=== PATIENT | male | born 1940 | race Caucasian/White ===

== ENCOUNTER 2017-03-20 10:29 | Observation (INO) | payer OTHER ==
[2017-03-13 10:46] VITALS: BMI 23.0
--- NOTE | 2017-03-13 11:29 | PAT Medication Instructions ---
Service Date Mar 13, 2017. Current Home Medication List Amlodipine (Norvasc), 10 MG PO QD@0500 Aspirin (Aspirin Ec), 81 MG PO QD@0500 Atorvastatin (Lipitor), 1 TAB PO QD@1800 Cetirizine/Pseudoephedrine (Zyrtec-D Er 5MG/120MG), 1 TAB PO Q12H PRN for allergies Hydrocodone/Acetaminophen 5MG/325MG ([place] 5MG/325MG), 1 TABLET PO Q6 PRN for Pain Omeprazole (Prilosec), 20 MG PO DAILY PRN for Heartburn Medication Instructions For Your Scheduled Surgery - Hold the following medications the morning of surgery: Cetirizine/Pseudoephedrine (Zyrtec-D Er 5MG/120MG), 1 TAB PO Q12H PRN for allergies - Take the following medications the morning of surgery with a sip of water OTHERWISE NOTHING TO EAT OR DRINK AFTER MIDNIGT: Amlodipine (Norvasc), 10 MG PO QD@0500 Omeprazole (Prilosec), 20 MG PO DAILY PRN for Heartburn Hydrocodone/Acetaminophen 5MG/325MG ([place] 5MG/325MG), 1 TABLET PO Q6 PRN for Pain (may take if needed up to 4 hours prior to surgery) Aspirin (Aspirin Ec), 81 MG PO QD@0500 (okay to continue per surgeon) - Take the following medications as scheduled the night before surgery: Hydrocodone/Acetaminophen 5MG/325MG ([place] 5MG/325MG), 1 TABLET PO Q6 PRN for Pain Atorvastatin (Lipitor), 1 TAB PO QD@1800 If you have any questions please call us at [phone] or [phone] or [phone]
[2017-03-13 11:55] LABS: URINE APPEARANCE CLEAR (CLEAR); URINE BILIRUBIN NEG (NEG); URINE COLOR YELLOW; URINE NITRITE NEG (NEG); URINE SPECIFIC GRAVITY 1.013 (1.000-1.030); UROBILINOGEN NEG (NEG)
[2017-03-13 11:56] LABS: BASO % 0.5 %; BASO ABS # 0.04 K/uL (0-0.2); COMPLETE YES; HEMATOCRIT 41.3 % (42-52); IG% 0.2 %; LYMPH % 22.4 %; LYMPH ABS # 1.97 K/uL (1.2-3.4); MEAN CELL VOLUME 96.9 fL (80-100); MEAN CORPUSCULAR HEMOGLOBIN 33.8 pg (25-34); MEAN CORPUSCULAR HGB CONC 34.9 g/dl (32-36); MEAN PLATELET VOLUME 10.8 fL (7.4-10.4); MONO % 7.6 %; NEUT % 68.3 %; PLATELET COUNT 178 K/uL (130-400); RED BLOOD COUNT 4.26 M/uL (4.7-6.1); WHITE BLOOD COUNT 8.78 K/uL (4.8-10.8)
[2017-03-13 12:00] LABS: MANUAL MICROSCOPIC REQUIRED? NO; REVIEW REQ? NO
[2017-03-13 12:03] LABS: PARTIAL THROMBOPLASTIN RATIO 1.1; PROTHROMBIN TIME (PATIENT) 10.7 SECONDS (9.0-12.0)
--- NOTE | 2017-03-13 12:17 | DIAGNOSTIC IMAGING REPORT ---
CHEST 2 VIEWS ROUTINE HISTORY: 76 years-old Male PAT preoperative exam. No acute chest complaints. COMPARISON: None available TECHNIQUE: PA and lateral views of the chest FINDINGS: Cardiac silhouette is within normal limits. Mild biapical pleural-parenchymal scarring with hyperinflation, increased lucency suggesting emphysema and multifocal multilobar distribution of subpleural reticular opacities suggesting areas of fibrosis. There is no pneumothorax, pleural effusion or definite lobar airspace consolidation. Multilevel endplate spurring of the spine. IMPRESSION: 1. Hyperinflation with emphysema and subpleural reticular opacities suggesting areas of fibrosis. 2. No acute cardiopulmonary process is identified. The above report was generated using voice recognition software. It may contain grammatical, syntax or spelling errors. Electronically signed by: Benito Bautista M.D. 03/13/2017 12:15 PM Dictated Date/Time: 03/13/2017 12:14 PM
[2017-03-13 13:43] LABS: BUN/CREATININE RATIO 20.9 (10-20); CALCIUM 9.1 mg/dl (8.5-10.1); CREATININE 0.81 mg/dl (0.60-1.40); POTASSIUM 4.3 mmol/L (3.5-5.1)
--- NOTE | 2017-03-19 17:22 | HISTORY & PHYSICAL EXAMINATION ---
DATE OF ADMISSION: 03/20/2017 CHIEF COMPLAINT: He presents with low back pain with right lower extremity difficulty. HISTORY OF PRESENT ILLNESS: Yair is a 76-year-old male with low back pain and some right lower extremity difficulty. He states that he has had a history of fairly significant radiculopathy with weakness in the right lower extremity. It has been going on for quite a while now. Seems to be along the L4 nerve root distribution. He cannot extend his legs fully. He uses a walker for support; however, does ambulate independently. PAST MEDICAL HISTORY: Includes: 1. COPD. 2. History of DVT. 3. Hypertension. PAST SURGICAL HISTORY: Includes a hernia repair. ALLERGIES: No known drug allergies. CURRENT MEDICATIONS: Not given. FAMILY AND SOCIAL HISTORY: He lives alone, no alcohol use, non-tobacco use, little activity as far as his ____ He is retired. REVIEW OF SYSTEMS: MUSCULOSKELETAL: Positive for joint pain, stiffness, weakness to the lower extremity. CONSTITUTIONAL: Positive for weight loss. RESPIRATORY: Positive for shortness of breath and wheezing. GASTROINTESTINAL: Positive for nausea and vomiting. GENITOURINARY: Positive for no emergency or frequency. PSYCHIATRIC: He has no confusion or depression. OBJECTIVE: CONSTITUTIONAL: He is 5 foot 10 inches; he is 165 pounds. Appearance: He is in distress. He is in a wheelchair. He uses a walker. PSYCHIATRIC: He is alert and oriented x3. RESPIRATORY: Lungs are not clear, there were some wheezing present bilaterally. NEUROLOGIC: He has weakness of the quadriceps on the right side, worst in the left. Weakness with dorsiflexion on the right. He has no signs of upper motor neuron pathology. INTEGUMENTARY: No unusual skin markings. Skin is intact. MUSCULOSKELETAL: He has slight pain with straight leg raising on the right, none on the left. A slight gait abnormality with a limp to the right. Reflexes are intact bilaterally. DIAGNOSTIC TESTS: Ordered, plain films demonstrated slight degenerative scoliosis of the spine. He also has a complete flat back deformity of the lumbar spine. No spondylolisthesis or listhesis was noted. 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 PLAN: At this time, we are going to get him setup for surgery. We are going to preop him and schedule him for a fusion from the L3 through L5. We may possibly use Globus transition at L3-L4. We discussed surgery anticipatory recovery times. We discussed risks, benefits as well. We gave him a back brace for support for postop. We gave him postop medication as well. We will follow him back up in the office in approximately 10-14 days postoperatively, remove suture and evaluated as well. Anticipate he will be at [facility] for 2 days.
[2017-03-20] VITALS (8 sets, daily range): BP systolic 106–144; BP diastolic 64–74; PULSE 67–89; TEMP 36.4–36.8; O2SAT 91–97; Ht 177.8 cm; Wt 74.6 kg
[~2017-03-20] VITALS: Ht 177.8 cm; Wt 74.6 kg
[~2017-03-20 10:29] MED LIST: AMLO-114 PO; ASPI81TA28 PO; ATOR-24 PO; CEFAZOLIN 2000MG IV PUSH 10 ML IV SCH; CETITAB27 PO; HYDR-5688 PO; LACTATED RINGER'S 1000ML 1,000 ML IV SCH; NSS 1000ML IV SCH; PRLSR20 PO
[2017-03-20] MEDS ORDERED: PROPOFOL IV EMULSION 10 MG/ML 20 ML VIAL IV ONE (12:33)
[2017-03-20] MEDS ORDERED: DEXAMETHASONE SOD INJ 4 MG/ML VIAL ONE (12:33)
[2017-03-20] MEDS ORDERED: LIDOCAINE HCL 2% 2 ML VIAL (20MG/ML) ONE (12:33)
[2017-03-20] MEDS ORDERED: NEOSTIGMINE METHYLSULFATE 1 MG/ML 10ML VIAL ONE (12:33)
[2017-03-20] MEDS ORDERED: ONDANSETRON INJ 2 MG/ML 2 ML VIAL ONE (12:33)
[2017-03-20] MEDS ORDERED: GLYCOPYRROLATE INJ 0.2 MG/ML VIAL ONE (12:33)
[2017-03-20] MEDS ORDERED: ROCURONIUM BROMIDE 10 MG/ML 5 ML VIAL IV ONE (12:33)
[2017-03-20] MEDS ORDERED: MIDAZOLAM HCL 1 MG/ML 2ML VIAL ONE (12:34)
[2017-03-20] MEDS ORDERED: FENTANYL CITRATE INJ 50 MCG/1 ML 2 ML VIAL ONE ×4 (12:34→17:06)
[2017-03-20] MEDS ORDERED: GELATIN SPONGE SZ 100 ONE (14:39)
[2017-03-20] MEDS ORDERED: THROMBIN FOR SOLN 20000 UNIT KIT ONE (14:39)
[2017-03-20] MEDS ORDERED: BACITRACIN 50000 UNIT VIAL ONE (14:40)
[2017-03-20] MEDS ORDERED: VANCOMYCIN HCL 1000MG/20ML VIAL ONE (14:40)
[2017-03-20] MEDS ORDERED: BUPIVACAINE/EPINEPHRINE 0.5% MPF 1:200,000 30 ML VIAL ONE (14:40)
--- NOTE | 2017-03-20 14:49 | History & Physical Bridge Note ---
H&P Re-Evaluation Bridge Note: I have examined the patient, reviewed the History & Physical and in the interval since the performance of the History & Physical I have noted the following changes of clinical significance: No changes noted
--- NOTE | 2017-03-20 14:56 | History & Physical Bridge Note ---
H&P Re-Evaluation Bridge Note: I have examined the patient, reviewed the History & Physical and in the interval since the performance of the History & Physical I have noted the following changes of clinical significance: No changes noted LAMINECTOMY L3-5, FUSION L3-5
[2017-03-20] MEDS ORDERED: PHENYLEPHRINE 100MCG/ML 5ML SYR ONE (15:48)
--- NOTE | 2017-03-20 16:49 | [facility] Post Operative Brief Note ---
Immediate Operative Summary Operative Date Mar 20, 2017. Pre-Operative Diagnosis Acute lumbar spine radiculopathy with degenerative, stenosis and weakness of the right lower extremity, severe stenosis of the lumbar spine with most particularly at L3-L4 and L4-L5 Post-Operative Diagnosis Same as preoperative diagnosis Procedure(s) Performed L3-L5 Laminectomy and Discectomy Surgeon Dr. Harper Boot And Shoe Laborer Surgeon(s) [place] TURNER Estimated Blood Loss 200 ml Findings severe stenosis Specimens none Complication(s) None Disposition Recovery Room / PACU
[2017-03-20] MEDS ORDERED: METOCLOPRAMIDE HCL INJ 5 MG/ML 2 ML VIAL IV PRN (17:00)
[2017-03-20] MEDS ORDERED: PANTOprazole SOD 40 MG TAB PO PRN (17:00)
[2017-03-20] MEDS ORDERED: ONDANSETRON INJ 2 MG/ML 2 ML VIAL IV PRN ×2 (17:00→17:15)
[2017-03-20] MEDS ORDERED: HYDROmorphone INJ 1 MG/ML SYR IV PRN ×3 (17:00→17:15)
[2017-03-20] MEDS ORDERED: OXYCODONE/ACETAMINOPHEN 5-325 TAB PO PRN (17:00)
[2017-03-20] MEDS ORDERED: ACETAMINOPHEN 325 MG TAB PO PRN (17:00)
[2017-03-20] MEDS ORDERED: PROMETHAZINE HCL INJ 12.5 MG in SODIUM CHLORIDE 0.9% 50ML 50 ML IV PRN (17:00)
[2017-03-20] MEDS ORDERED: LORAZEPAM 1 MG TAB PO PRN (17:00)
[2017-03-20] MEDS ORDERED: CEFAZOLIN IV 1,000 MG in DEXTROSE 5% 50ML 50 ML IV SCH (17:00)
[2017-03-20] MEDS ORDERED: LORAZEPAM INJ 1 MG in SYRINGE 0 ML IV PRN (17:00)
--- NOTE | 2017-03-20 17:01 | DIAGNOSTIC IMAGING REPORT ---
LUMBAR SPINE, INTRAOPERATIVE FLUOROSCOPY HISTORY: L3-L4 laminectomy. FLUOROSCOPY TIME: 1 second. FINDINGS: Intraoperative fluoroscopy was provided for the lumbar spine. Single fluoroscopic spot image of the lumbar spine. There are surgical instruments posterior to the lower lumbar spine vertebral bodies. IMPRESSION: Fluoroscopy provided for a L3-L4 laminectomy. Electronically signed by: Karl Escobar M.D. 03/20/2017 4:59 PM Dictated Date/Time: 03/20/2017 4:59 PM
[2017-03-20 17:11] LABS: HEMATOCRIT 41.2 % (42-52)
[2017-03-20] MEDS ORDERED: FENTANYL CITRATE INJ 50 MCG/1 ML 2 ML VIAL IV PRN (17:15)
[2017-03-20] MEDS ORDERED: ATROPINE SULFATE 0.1 MG/ML 5ML SYR IV PRN (17:15)
[2017-03-20] MEDS ORDERED: EpHEDrine SULFATE INJ 50 MG/ML AMP IV PRN (17:15)
--- NOTE | 2017-03-20 17:23 | OPERATIVE REPORT ---
DATE OF OPERATION: 03/20/2017 PREOPERATIVE DIAGNOSIS: Severe spinal stenosis, L3-L4, L4-L5, L5-S1. POSTOPERATIVE DIAGNOSIS: Same. PROCEDURE: Laminectomy L3-L5, lumbar spine. Foraminotomies, partial facetectomy, no fusion of the spine. DESCRIPTION OF PROCEDURE: The patient was taken to the operating room, a general intubated anesthetic provided to the patient, placed prone, scrubbed, prepped, draped sterile. We made a skin incision, fascial incision down to the lamina. We careful did a laminectomy of L5, L4 and L3, foraminotomies, partial facetectomy, it was a very tight canal, very thin dura and very compromised flow of the cerebral spinal fluid. After a thorough decompression, we assessed for stability. I thought there was no gross instability, no instrumentation needed. No fusion required. We then irrigated, closed over the Gelfoam over Hemovac drain and vancomycin powder with 1 Vicryl suture, 2-0 in the subcuticular layer, and 3-0 nylon on the skin. Sterile dressing applied. SURGEON: Dr. Harper. COUNTER SUPPLY WORKER: Richy Cannon PA-C. COMPLICATIONS: Zero. BLOOD LOSS: 200 mL. IMPLANTS USED: No implants used. COUNTS: Sponge and needle count correct at the close. CONDITION: The patient was extubated to PACU, improved, stable. COMPLICATIONS: No apparent complications. I attest to the content of the Intraoperative Record and any orders documented therein. Any exception s are noted below.
--- NOTE | 2017-03-20 17:30 | Anesthesiology Progress Note ---
Anesthesia Post Op Note Date & Time Mar 20, 2017 at 17:30 Vital Signs Pain Intensity: 3 Vital Signs Past 12 Hours Date Time Temp Pulse Resp B/P (MAP) Pulse Ox O2 Delivery O2 Flow Rate FiO2 03/20/17 17:20 80 18 127/60 97 Nasal Cannula 4 03/20/17 17:15 135/60 03/20/17 17:10 83 16 95 Oxymask 10 03/20/17 17:02 91 16 143/69 98 Oxymask 10 03/20/17 16:52 36.1 95 16 139/71 99 Oxymask 10 03/20/17 10:47 36.8 89 18 144/70 (94) 97 Room Air Notes Mental Status: alert / awake / arousable, participated in evaluation Pt Amnestic to Procedure: Yes Nausea / Vomiting: adequately controlled Pain: adequately controlled Airway Patency, RR, SpO2: stable & adequate BP & HR: stable & adequate Hydration State: stable & adequate Anesthetic Complications: no major complications apparent
[2017-03-20] MEDS ORDERED: PRVHFAIN PO (18:53)
[2017-03-20] MEDS ORDERED: CETI10TA84 PO (18:53)
[2017-03-20] MEDS ORDERED: LISI-461 PO (18:53)
[2017-03-20] MEDS ORDERED: ALBUT/IPRATROP 3MG/0.5MG NEB 3 ML VIAL INH PRN (19:00)
[2017-03-20] MEDS: SODIUM CHLORIDE 0.9% 1000ML 1,000 ML IV SCH (19:21)
--- NOTE | 2017-03-20 19:28 | Medical Consult ---
Consultation Date of Consultation: Mar 20, 2017. Attending Physician: Tin Harper DO Reason for Consultation: Medical management History of Present Illness Pt is 76 y/o M with PMH HTN, dyslipidemia, spinal stenosis, COPD, AAA, tobacco abuse is medical consult after laminectomy L3-L5 by Dr Harper today. Pt denies any pain currently. Denies any LE pain, loss sensation of LE's or paresthesias of lower extremities. Denies loss of control of bowel or bladder. Didn't have BM yet after the procedure. Pt eating dinner. Pt reports hx PE 2010, unknown cause, reports was on anticoagulants for approx 3 years and then d/c and denies any recurrent PE/DVT or problems. Hx negative Factor V leiden, MTHFR and antithrombin 3 negative. Pt denies any nausea, vomiting, fever/chills, diaphoresis, WALLACE, dizziness, syncope, vision changes, neck pain, CP, SOB, orthopnea, palpitations, cough, sore throat, choking, abdominal pain, extremity edema, rashes, urinary symptoms. Past Medical/Surgical History Medical Problems: (1) AAA (abdominal aortic aneurysm) Status: Chronic (2) COPD (chronic obstructive pulmonary disease) Status: Chronic (3) Dyslipidemia Status: Chronic (4) GERD (gastroesophageal reflux disease) Status: Chronic (5) HTN (hypertension) Status: Chronic (6) Hx pulmonary embolism Status: Resolved Surgical Problems: (1) Hx of cataract removal with insertion of prosthetic lens Status: Resolved (2) Hx of inguinal hernia surgery Status: Resolved Family History Diabetes mellitus MOTHER BROTHER SISTER FH: CAD (coronary artery disease) MOTHER (ND age 60) SISTER (CABG age 60) Social History Smoking Status: Current Every Day Smoker (smokes 7-8 cigars a day. Smoked 1ppd cigarettes x 65 years) Smokeless Tobacco Use: No Alcohol Use: none Drug Use: none Allergies Coded Allergies: Niacin (Verified Allergy, Unknown, rash and burning feeling, 03/20/17) Home Medications Reported Home Medications Medications Dose Route/Sig Max Daily Dose Days Date Category Dose Instructions Lisinopril 10 Mg Tab 1 Tab PO DAILY 03/20/17 Reported Zyrtec (Cetirizine HCl) 10 Mg Tab 1 Tab PO DAILY 03/20/17 Reported Ventolin Hfa (Albuterol) 60 Puffs/5400 Mcg Aers 2 Inha PO Q4H 03/20/17 Reported Lipitor (Atorvastatin Calcium) 40 Mg Tab 1 Tab PO QD@1800 30 03/13/17 Reported Reading 5MG/325MG (Acetaminophen/Hydrocodone Bitart) Tab 1 Tablet PO Q6 PRN 03/13/17 Reported PRN PAIN Aspirin Ec (Aspirin) 81 Mg Tab 81 Mg PO QD@0500 03/13/17 Reported Prilosec (Omeprazole) 20 Mg Capcr 20 Mg PO DAILY PRN 03/13/17 Reported Norvasc (Amlodipine Besylate) 10 Mg Tab 10 Mg PO QD@0500 03/13/17 Reported Current Inpatient Medications Current Inpatient Medications Medications (Trade) Dose Ordered Sig/Nupur Route Start Time Stop Time Status Last Admin Dose Admin Acetaminophen (Tylenol Tab) 650 mg Q6H PRN PO 03/20/17 17:00 04/19/17 16:59 Hydromorphone HCl (Dilaudid Inj) 1 mg Q3H PRN IV 03/20/17 17:00 04/03/17 16:59 Hydromorphone HCl (Dilaudid Inj) 1.5 mg Q3H PRN IV 03/20/17 17:00 04/03/17 16:59 Promethazine HCl 12.5 mg/Sodium Chloride 50.5 ml @ 202 mls/hr Q6H PRN IV 03/20/17 17:00 04/19/17 16:59 Ondansetron HCl (Zofran Inj) 4 mg Q6H PRN IV 03/20/17 17:00 04/19/17 16:59 Metoclopramide HCl (Reglan Inj) 10 mg Q6H PRN IV 03/20/17 17:00 04/19/17 16:59 Lorazepam (Ativan Tab) 1 mg Q6H PRN PO 03/20/17 17:00 04/19/17 16:59 Lorazepam 1 mg/ Syringe 0.5 ml @ 1 mls/min Q6H PRN IV 03/20/17 17:00 04/19/17 16:59 Polyethylene (Miralax Powder Packet) 17 gm DAILY PO 03/21/17 09:00 04/20/17 08:59 Bisacodyl (Dulcolax Tab) 5 mg DAILY PRN PO 03/21/17 06:00 04/20/17 05:59 Bisacodyl (Dulcolax Supp) 10 mg DAILY PRN MD 03/21/17 06:00 04/20/17 05:59 Magnesium Hydroxide (Milk Of Magnesia Susp) 30 ml DAILY PRN PO 03/20/17 17:00 04/19/17 16:59 Diphenhydramine HCl (Benadryl Cap) 25 mg Q6H PRN PO 03/20/17 17:00 04/19/17 16:59 Oxycodone/ Acetaminophen (Percocet 5-325mg Tab) 1 tab Q4H PRN PO 03/20/17 17:00 04/03/17 16:59 Oxycodone/ Acetaminophen (Percocet 5-325mg Tab) 2 tab Q4H PRN PO 03/20/17 17:00 04/03/17 16:59 Dexamethasone Sodium Phosphate 10 mg/Syringe 2.5 ml @ 1 mls/min Q8H IV 03/20/17 20:00 03/22/17 04:03 Sodium Chloride 1,000 ml @ 80 mls/hr [id number] IV 03/20/17 18:30 04/19/17 18:29 Amlodipine Besylate (Norvasc Tab) 10 mg DAILY@0500 PO 03/21/17 05:00 04/20/17 04:59 Aspirin (Ecotrin Tab) 81 mg DAILY@0500 PO 03/21/17 05:00 04/20/17 04:59 Atorvastatin Calcium (Lipitor Tab) 40 mg DAILY@1800 PO 03/20/17 18:00 04/19/17 17:59 Miscellaneous Information (Order Awaiting Action) 1 ea QS N/A 03/21/17 00:00 04/20/17 00:00 Pantoprazole Sodium (Protonix Tab) 40 mg DAILY PRN PO 03/20/17 17:00 04/19/17 16:59 Fentanyl Citrate (Fentanyl Inj) 50 mcg Q5M PRN IV 03/20/17 17:15 03/20/17 22:15 Hydromorphone HCl (Dilaudid Inj) 0.5 mg Q5M PRN IV 03/20/17 17:15 03/20/17 22:15 Ondansetron HCl (Zofran Inj) 4 mg ONE PRN IV 03/20/17 17:15 03/20/17 22:15 Ephedrine Sulfate (EpHEDrine SULFATE INJ) 5 mg Q5M PRN IV 03/20/17 17:15 03/20/17 22:15 Atropine Sulfate (Atropine Sulfate 0.1MG/Ml Inj) 0.5 mg Q1M PRN IV 03/20/17 17:15 03/20/17 22:15 Cefazolin Sodium 1000 mg/Syringe 5 ml @ 1.667 mls/ min Q8H IV 03/20/17 23:00 03/21/17 15:02 Review of Systems Constitutional: No fever, No chills, No sweats, No weight loss, No weakness Eyes: No worsening of vision, No eye pain, No redness, No discharge, No diplopia ENT: No hearing loss, No unusual epistaxis, No nasal symptoms, No sore throat Respiratory: No cough, No sputum, No wheezing, No shortness of breath, No dyspnea on exertion, No dyspnea at rest, No hemoptysis Cardiovascular: No chest pain, No orthopnea, No PND, No palpitations Abdomen: No pain, No nausea, No vomiting, No diarrhea, No constipation Musculoskeletal: + problem reported (see HPI) Genitourinary - Male: + problem reported, No hematuria, No dysuria, No urinary frequency, No urinary urgency Neurologic: No weakness, No numbness/tingling, No vertigo Psychiatric: No depression symptoms, No anxiety Endocrine: No excessive thirst, No excessive urination Integumentary: No rash, No itch Physical Exam Date Time Temp Pulse Resp B/P (MAP) Pulse Ox O2 Delivery O2 Flow Rate FiO2 03/20/17 18:37 Nasal Cannula 3.5 94 03/20/17 18:30 36.4 77 18 127/66 (86) 94 Nasal Cannula 3.5 03/20/17 17:47 36.4 75 16 135/68 (90) 92 Nasal Cannula 4.0 03/20/17 17:30 36.2 79 18 128/64 95 Nasal Cannula 4 03/20/17 17:20 80 18 127/60 97 Nasal Cannula 4 03/20/17 17:15 135/60 03/20/17 17:10 83 16 95 Oxymask 10 03/20/17 17:02 91 16 143/69 98 Oxymask 10 03/20/17 16:52 36.1 95 16 139/71 99 Oxymask 10 03/20/17 10:47 36.8 89 18 144/70 (94) 97 Room Air General Appearance: WD/WN, no apparent distress Head: normocephalic, atraumatic Eyes: normal inspection, PERRL, sclerae normal ENT: hearing grossly normal, pharynx normal, + pertinent finding (moist mucous membranes) Neck: supple, trachea midline, + pertinent finding (non-tender, ROM intact) Respiratory/Chest: chest non-tender, lungs clear, normal breath sounds, no respiratory distress, no accessory muscle use Cardiovascular: regular rate, rhythm, no edema, no murmur, normal peripheral pulses Abdomen/GI: normal bowel sounds, non tender, soft Back: + pertinent finding (lumbar region with surgical dressing in place. Pt sitting up in bed) Extremities/Musculoskelatal: no calf tenderness, normal capillary refill, no pedal edema, non-tender, + pertinent finding (distal pulses intact, sensation to light touch intact, pedal pushes/pulls intact ) Neurologic/Psych: alert, normal mood/affect, oriented x 3 Skin: normal color, warm/dry Laboratory Results Last 24 Hours Test 03/20/17 17:02 Hemoglobin 14.0 g/dL Hematocrit 41.2 % Assessment & Plan LAMINECTOMY L3-L5 Surgery today by Dr Harper -pain management per ortho -wound management per ortho -PT/OT as appropriate -DVT prophylaxis per ortho -incentive spirometry -monitor H&H for acute blood loss anemia COPD Denies SOB or wheezing. Lungs clear to auscultation -Duoneb prn SOB/wheezing HTN -continue lisinopril -continue amlodipine -continue ASA GERD -PPI DYSLIPIDEMIA Lipids 02/07/17. Total: 131, LDL: 65, HDL: 38, Triglycerides: 142 -continue atorvastatin TOBACCO ABUSE -discussed smoking cessation DVT PROPHYLAXIS -per ortho Full Code as per discussion with pt -Follows with Dr Armijo for routine care Pt was seen with Dr Soni. See addendum Dr Garcia will follow. ADDENDUM: This is a 76 year old male with a PMH of PE/DVT no longer on anticoagulation, COPD and ongoing tobacco use, HTN, HLD - presents for a scheduled lumbar laminectomy - doing well, pain controlled, wound vac in place -- tells me he was once on Coumadin, unsure of why this was stopped, but he has been off of it for about three years ago. Plan: check labs in AM pain control as per ortho wound vac in place draining continue ASA and SCDs for DVT ppx as per ortho Additional Copies To Alvin Armijo D.O.
[2017-03-20] MEDS ORDERED: IV FLUIDS COMPLETED PRN (19:30)
[2017-03-20] MEDS: ATORVASTATIN 40 MG TAB PO SCH (19:53)
[2017-03-20] MEDS: DEXAMETHASONE INJ 10 MG in SYRINGE 0 ML IV SCH (20:52)
[2017-03-20] MEDS: CEFAZOLIN IV 1,000 MG in SYRINGE 0 ML IV SCH (23:00)
[2017-03-21] VITALS (11 sets, daily range): BP systolic 100–132; BP diastolic 50–80; PULSE 68–87; TEMP 36.6–36.9; O2SAT 84–96
[2017-03-21] MEDS: DEXAMETHASONE INJ 10 MG in SYRINGE 0 ML IV SCH ×3 (03:27→20:29)
[2017-03-21] MEDS: ASPIRIN 81 MG ECTAB PO SCH (05:17)
[2017-03-21] MEDS: AMLODIPINE BESYLATE 5 MG TAB PO SCH (05:18)
[2017-03-21 05:59] LABS: HEMATOCRIT 36.5 % (42-52); MEAN CELL VOLUME 96.6 fL (80-100); MEAN CORPUSCULAR HEMOGLOBIN 32.5 pg (25-34); MEAN CORPUSCULAR HGB CONC 33.7 g/dl (32-36); PLATELET COUNT 158 K/uL (130-400); RED BLOOD COUNT 3.78 M/uL (4.7-6.1); WHITE BLOOD COUNT 10.06 K/uL (4.8-10.8)
[2017-03-21] MEDS ORDERED: BISACODYL 10 MG SUPP PR PRN (06:00)
[2017-03-21] MEDS ORDERED: BISACODYL 5 MG TABEC PO PRN (06:00)
[2017-03-21] MEDS: CEFAZOLIN IV 1,000 MG in SYRINGE 0 ML IV SCH ×2 (06:24→14:46)
[2017-03-21] MEDS: SODIUM CHLORIDE 0.9% 1000ML 1,000 ML IV SCH (06:29)
[2017-03-21 06:32] LABS: BUN/CREATININE RATIO 17.9 (10-20); CALCIUM 8.3 mg/dl (8.5-10.1); CREATININE 1.06 mg/dl (0.60-1.40); POTASSIUM 4.4 mmol/L (3.5-5.1)
[2017-03-21] MEDS: OXYCODONE/ACETAMINOPHEN 5-325 TAB PO PRN ×2 (07:27→14:54)
--- NOTE | 2017-03-21 08:19 | Anesthesiology Progress Note ---
Anesthesia Post Op Note Date & Time Mar 21, 2017 at 08:18 Vital Signs Vital Signs Past 12 Hours Date Time Temp Pulse Resp B/P (MAP) Pulse Ox O2 Delivery O2 Flow Rate FiO2 03/21/17 07:58 36.6 70 18 100/80 (87) 91 Nasal Cannula 2.0 03/21/17 07:56 91 Nasal Cannula 2.0 03/21/17 07:30 84 Room Air 03/21/17 05:00 120/67 (84) 03/21/17 03:27 36.7 74 16 115/66 (82) 95 Nasal Cannula 3.5 03/20/17 23:19 36.7 67 16 106/64 (78) 93 Nasal Cannula 3.5 03/20/17 23:00 Nasal Cannula 03/20/17 20:57 36.6 78 16 129/74 (92) 93 Nasal Cannula 4.0 Notes Mental Status: alert / awake / arousable, participated in evaluation Pt Amnestic to Procedure: Yes Nausea / Vomiting: adequately controlled Pain: adequately controlled Airway Patency, RR, SpO2: stable & adequate BP & HR: stable & adequate Hydration State: stable & adequate Anesthetic Complications: no major complications apparent
--- NOTE | 2017-03-21 08:27 | ORTHOPEDICS PROGRESS NOTE ---
DATE: 03/21/2017 SUBJECTIVE: Alert, oriented. Afebrile. Communicates well. No chest pain, shortness of breath. Still fairly weak. Moves all 4 extremities. OBJECTIVE: Vital signs stable. ASSESSMENT: Spinal stenosis surgery just performed last evening, doing well short run medically. I informed him today he has had longstanding difficulty with lower extremities greater than 24 months, his recovery will be very slow. DISPOSITION: We will get him up and out of bed today with physical therapy, hopefully to an extended care facility or rehab type facility. I would anticipate his discharge to be Friday or Friday.
[2017-03-21] MEDS: CETIRIZINE HCL 10 MG TAB PO SCH (08:40)
[2017-03-21] MEDS: LISINOPRIL 10 MG TAB PO SCH (08:41)
[2017-03-21] MEDS ORDERED: POLYETHYLENE (MIRALAX) 17 GM PACK PO SCH (09:00)
--- NOTE | 2017-03-21 14:06 | Discharge Instructions ---
Discharge Instructions Date of Service Mar 21, 2017. Admission Reason for Admission: Lumbar Spinal Stenosis, Disc Herniation L3-L4, 223 Discharge Discharge Diagnosis / Problem: same Discharge Goals Goal(s): Improve function Activity Recommendations Activity Limitations: as noted below Lifting Limitations: gradually increase as tolerated . Instructions / Follow-Up Instructions / Follow-Up MEDICATIONS: Please take your prescriptions as instructed at your pre-op appointment. SPECIAL CARE: The following information is intended to answer some of the common questions and concerns regarding your surgery. Each patient is an individual and receives individual counselling throughout the course of treatment, from diagnosis to surgery all the way through recovery. What follows is not an exhaustive list, but should be a useful guide to some of the common questions and concerns patients have regarding their surgeries. These are not provided to keep you from calling us; rather, they give you something accurate and concrete to reference as you recover from your procedure. If you need us, we are available to you. As always, if you are not sure about something, call us at [phone]. MEDICAL EMERGENCIES: For these conditions, call 911 or go to your local hospital-based Emergency Department - not [facility] or equivalent. * Paralysis * Severe chest pain or difficulty breathing * Swelling or redness of either leg Spine procedures can be rather complex and though complications are rare, they do occur. In such cases, effective advice regarding emergency situations cannot always be addressed over the telephone. You may be referred to the emergency department for more effective management of your problem. Activity Limitations: It is important to give your body time to heal, so please limit your activities : * In general, don't do anything that moves your spine too much. You should avoid contact sports, twisting or heavy lifting while you recover. * 5-10 pounds is all you should attempt to lift. * You should not plan on driving for approximately 3 weeks and you should avoid traveling more than 30-45 minutes at a time. Longer trips should be broken down with walking breaks spaced appropriately. * Physical therapy is not usually required. * Walking and good posture practices will help you recover and regain your function. * Avoid straining or sudden changes in position. * In general, the goal is to take it easy and recover. Don't cause any new problems. Just relax. Showers: * Do not take a bath, use a Jacuzzi or hot tub or otherwise submerge your incision. * It is usually safe to take a shower 4-5 days after your surgery. * Your incision does not require any special creams or ointments. * Simply clean it with soap and water, dry and re-dress with a clean bandage afterwards. Incision: * Keep incision clean, dry and protected until your first follow-up appointment. * Some amount of drainage and redness is normal. Any drainage should be fairly clear and not have a foul odor. * If you feel anything is wrong or you have excessive drainage, please call us. * Your stitches and gisselle will be removed 10-14 days after your surgery. At the time of your first post-op visit. * Neck surgeries are typically closed with a suture underneath the skin. The steri-strips over the incision should be maintained until we see you in the office. Bracing: * You may be provided with a back or neck brace to encourage good posture and prevent injury. It will remind you not to do too much as you heal and will alert others to the fact that you have had a surgery. * Back braces may be removed for showers and when you are resting at home. They must be worn when you are walking around for any period of time or for travel. * For neck surgery, you will likely be provided with two cervical collars. The soft collar ([place] or foam rubber) is worn most commonly throughout the day and while sleeping. The plastic collar (provided at the hospital) is for showering/bathing. * Except while eating, collars should remain in place. More specifically, bracing is provided for a purpose and should be worn. * Please obtain your brace or collars prior to your operation and bring them to the hospital with you on the day of surgery. * You should also bring your collars to your post-op appointment with Dr. Harper. You should always take good care of your body and practice healthy habits, especially following surgery. You should: * Follow your doctor's treatment plan * Sit and stand properly with good posture (ears over shoulders, shoulders over hips) Don't slouch * Learn to lift correctly * Exercise regularly (low-impact aerobic exercise is especially good, but check with your doctor first) * Generally, be up and walking for 5-10 minutes at a time at least 3-4 times per day from the day you get home * Increasing walking to tolerance until you can walk for 20-30 minutes at a time * Attain and maintain a healthy body weight * Eat healthy foods ( a well-balanced, low-fat diet rich in fruits and vegetables) and get enough calcium * Avoid excessive use of alcohol When to call our office - If you notice any of the following: * Increased pain not relieve by pain medicine * Fevers greater then 100 degrees F, chills or flu symptoms * Increased redness around incision * Drainage from the incision that is not clear * Any foul smelling drainage * Swelling or fluid collection beneath the skin Miscellaneous: * In the hospital, you may be given a walker or cane for support while walking. These are temporary needs and are intended to prevent injuries due to falls. You may discontinue them when you feel strong and steady enough on your feet. * Sleep in a comfortable position. We find that many patients find a lounge chair or recliner with several pillows to be beneficial in the early post-operative period. * The support stockings should be used for 7-10 days and may be discontinued when you are back to walking more and conducting usual household activities. No problem is insignificant. We are here to help you and get you well. Contact us at [phone]. Definitions: Foraminotomy: If part of the disc or a bone spur (osteophyte) is pressing on a nerve as it leaves the vertebra (through an exit called the foramen), a foraminotomy may be done. Otomy means "to make an opening." A foraminotomy is making the opening of the foramen larger, so the nerve can exit without being compressed. Laminotomy: Similar to the foraminotomy, a laminotomy makes a larger opening, this time in your bony plate protecting your spinal canal and spinal cord (the lamina). The lamina may be pressing on your nerve, so the surgeon may make more room for the nerves using a laminotomy. Laminectomy: Sometimes, a laminotomy is not sufficient. The surgeon may need to remove all or part of the lamina. This procedure is called a laminectomy. This can often be done at many levels without any harmful effects. Current Hospital Diet Patient's current hospital diet: Regular Diet Discharge Diet Recommended Diet: Regular Diet Procedures Procedures Performed: L3-L5 Laminectomy and Discectomy Pending Studies Studies pending at discharge: no Medical Emergencies . Who to Call and When: Medical Emergencies: If at any time you feel your situation is an emergency, please call 911 immediately. . Non-Emergent Contact Non-Emergency issues call your: Surgeon . "Provider Documentation" section prepared by Tin Harper. . VTE Core Measure Inpt VTE Proph given/why not?: Treatment not indicated
[2017-03-21] MEDS: MAGNESIUM HYDROXIDE SUSP 30 ML UDC PO PRN (14:54)
[2017-03-21] MEDS ORDERED: NURSING VERBAL MED ORDER ONE (16:45)
[2017-03-21] MEDS: ATORVASTATIN 40 MG TAB PO SCH (17:37)
[2017-03-21] MEDS ORDERED: GI COCKTAIL PO ONE (17:43)
[2017-03-21] MEDS ORDERED: FAMOTIDINE IV INJ 20 MG in DEXTROSE 5% 100ML 100 ML IV PRN (17:45)
[2017-03-21] MEDS ORDERED: GI COCKTAIL PO PRN (17:45)
--- NOTE | 2017-03-21 17:53 | Progress Note ---
Medicine Progress Note Date & Time of Visit: Mar 21, 2017 at 17:46. Subjective 76 yoM smoker s/p Lumbar laminectomy POD #1. Pt is doing well overall but reports some significant heartburn. Denies any other issues at this time. He did request to not receive the Miralax tomorrow morning as this, he feels, caused his heartburn this orning. He was apprised of the option for suppositories should he need it. Objective Last 8 Hrs Date Time Temp Pulse Resp B/P (MAP) Pulse Ox O2 Delivery O2 Flow Rate FiO2 03/21/17 15:10 36.7 77 18 127/63 (84) 90 Nasal Cannula 2.0 03/21/17 11:49 36.6 75 18 100/60 (73) 94 Nasal Cannula 1.0 03/21/17 10:21 76 101/61 (74) 96 Nasal Cannula 2.0 Physical Exam: GEN: WNWD, in no acute distress, alert and appropriate HEENT: NC/AT, PERRL, normal sclerae, MMM CARDIO: reg rate, S1/2 heard without m/g/r LUNGS: CTA bilaterally, no crackles, rales or wheezes, good diaphragmatic excursion BACK: dry dressing covering bandage, c/d/i, hemovac in place. ABD: soft, non-tender, non-distended, no rebound or guarding,+BS EXTREMITY: RP and DP palpable 2+ bilat, no LE swelling or edema, extremities are warm and well-perfused, SCDs in place. NEURO: CN 2-12 grossly intact, sensation intact throughout MUSC: 5/5 strength throughout, no focal deficits SKIN: warm and dry Laboratory Results: 03/21/17 05:25 03/21/17 05:25 Test 03/13/17 00:00 03/13/17 11:39 03/21/17 05:25 Urine Color YELLOW Urine Appearance CLEAR (CLEAR) Urine pH 7.0 (4.5-7.5) Urine Specific [place] 1.013 (1.000-1.030) Urine Protein NEG (NEG) Urine Glucose (UA) NEG (NEG) Urine Ketones NEG (NEG) Urine Occult Blood NEG (NEG) Urine Nitrite NEG (NEG) Urine Bilirubin NEG (NEG) Urine Urobilinogen NEG (NEG) Urine Leukocyte Esterase NEG (NEG) Immature Granulocyte % (Auto) 0.2 % White Blood Count 8.78 K/uL (4.8-10.8) Red Blood Count 4.26 M/uL (4.7-6.1) 3.78 M/uL (4.7-6.1) Hemoglobin 14.4 g/dL (14.0-18.0) Hematocrit 41.3 % (42-52) Mean Corpuscular Volume 96.9 fL (80-100) 96.6 fL (80-100) Mean Corpuscular Hemoglobin 33.8 pg (25-34) 32.5 pg (25-34) Mean Corpuscular Hemoglobin Concent 34.9 g/dl (32-36) 33.7 g/dl (32-36) Platelet Count 178 K/uL (130-400) Mean Platelet Volume 10.8 fL (7.4-10.4) 12.0 fL (7.4-10.4) Neutrophils (%) (Auto) 68.3 % Lymphocytes (%) (Auto) 22.4 % Monocytes (%) (Auto) 7.6 % Eosinophils (%) (Auto) 1.0 % Basophils (%) (Auto) 0.5 % Neutrophils # (Auto) 5.99 K/uL (1.4-6.5) Lymphocytes # (Auto) 1.97 K/uL (1.2-3.4) Monocytes # (Auto) 0.67 K/uL (0.11-0.59) Eosinophils # (Auto) 0.09 K/uL (0-0.5) Basophils # (Auto) 0.04 K/uL (0-0.2) Immature Granulocyte # (Auto) 0.02 K/uL (0.00-0.02) Prothrombin Time 10.7 SECONDS (9.0-12.0) Prothromb Time International Ratio 1.0 (0.9-1.1) Activated Partial Thromboplast Time 27.5 SECONDS (21.0-31.0) Partial Thromboplastin Ratio 1.1 RDW Standard Deviation 53.6 fL (36.4-46.3) RDW Coefficient of Variation 15.2 % (11.5-14.5) Anion Gap 7.0 mmol/L (3-11) Est Creatinine Clear Calc Drug Dose 62.2 ml/min Estimated GFR () 79.2 Estimated GFR (Non- 68.3 BUN/Creatinine Ratio 17.9 (10-20) Calcium Level 8.3 mg/dl (8.5-10.1) Last 24 Hours Test 03/21/17 05:25 White Blood Count 10.06 K/uL Red Blood Count 3.78 M/uL Hemoglobin 12.3 g/dL Hematocrit 36.5 % Mean Corpuscular Volume 96.6 fL Mean Corpuscular Hemoglobin 32.5 pg Mean Corpuscular Hemoglobin Concent 33.7 g/dl RDW Standard Deviation 53.6 fL RDW Coefficient of Variation 15.2 % Platelet Count 158 K/uL Mean Platelet Volume 12.0 fL Sodium Level 133 mmol/L Potassium Level 4.4 mmol/L Chloride Level 102 mmol/L Carbon Dioxide Level 24 mmol/L Anion Gap 7.0 mmol/L Blood Urea Nitrogen 19 mg/dl Creatinine 1.06 mg/dl Est Creatinine Clear Calc Drug Dose 62.2 ml/min Estimated GFR () 79.2 Estimated GFR (Non- 68.3 BUN/Creatinine Ratio 17.9 Random Glucose 165 mg/dl Calcium Level 8.3 mg/dl Assessment & Plan 76 yoM smoker s/p Lumbar laminectomy POD #1. Pt is doing well overall but reports some significant heartburn. 1. post-op state POD1 Surgery by Dr Harper -pain management per ortho -wound management per ortho -PT/OT as appropriate -DVT prophylaxis per ortho -incentive spirometry -monitor H&H for acute blood loss anemia 2. COPD Denies SOB or wheezing. Lungs clear to auscultation -Duoneb prn SOB/wheezing 3. HTN -continue lisinopril -continue amlodipine -continue ASA 4. GERD: PPI is ordered PRN, so will schedule this. GI cocktail and Pepcid IV q13 both PRN breakthrough heartburn. 5. DYSLIPIDEMIA Lipids 02/07/17. Total: 131, LDL: 65, HDL: 38, Triglycerides: 142 -continue atorvastatin 6. TOBACCO ABUSE -discussed smoking cessation DVT PROPHYLAXIS -SCDs per Ortho. Would recommend chemoprophylaxis as soon as able with h/o PE in the past. Thank you for this consultation. Kika Garcia DO [facility] Hospitalist Current Inpatient Medications: Current Inpatient Medications Medications (Trade) Dose Ordered Sig/Nupur Route Start Time Stop Time Status Last Admin Dose Admin Acetaminophen (Tylenol Tab) 650 mg Q6H PRN PO 03/20/17 17:00 04/19/17 16:59 Hydromorphone HCl (Dilaudid Inj) 1 mg Q3H PRN IV 03/20/17 17:00 04/03/17 16:59 Hydromorphone HCl (Dilaudid Inj) 1.5 mg Q3H PRN IV 03/20/17 17:00 04/03/17 16:59 Promethazine HCl 12.5 mg/Sodium Chloride 50.5 ml @ 202 mls/hr Q6H PRN IV 03/20/17 17:00 04/19/17 16:59 Ondansetron HCl (Zofran Inj) 4 mg Q6H PRN IV 03/20/17 17:00 04/19/17 16:59 Metoclopramide HCl (Reglan Inj) 10 mg Q6H PRN IV 03/20/17 17:00 04/19/17 16:59 Lorazepam (Ativan Tab) 1 mg Q6H PRN PO 03/20/17 17:00 04/19/17 16:59 Lorazepam 1 mg/ Syringe 0.5 ml @ 1 mls/min Q6H PRN IV 03/20/17 17:00 04/19/17 16:59 Polyethylene (Miralax Powder Packet) 17 gm DAILY PO 03/21/17 09:00 04/20/17 08:59 03/21/17 08:41 17 GM Bisacodyl (Dulcolax Tab) 5 mg DAILY PRN PO 03/21/17 06:00 04/20/17 05:59 Bisacodyl (Dulcolax Supp) 10 mg DAILY PRN GA 03/21/17 06:00 04/20/17 05:59 Magnesium Hydroxide (Milk Of Magnesia Susp) 30 ml DAILY PRN PO 03/20/17 17:00 04/19/17 16:59 03/21/17 14:54 30 ML Diphenhydramine HCl (Benadryl Cap) 25 mg Q6H PRN PO 03/20/17 17:00 04/19/17 16:59 Oxycodone/ Acetaminophen (Percocet 5-325mg Tab) 1 tab Q4H PRN PO 03/20/17 17:00 04/03/17 16:59 03/20/17 21:53 1 TAB Oxycodone/ Acetaminophen (Percocet 5-325mg Tab) 2 tab Q4H PRN PO 03/20/17 17:00 04/03/17 16:59 03/21/17 14:54 2 TAB Dexamethasone Sodium Phosphate 10 mg/Syringe 2.5 ml @ 1 mls/min Q8H IV 03/20/17 20:00 03/22/17 04:03 03/21/17 11:40 1 MLS/MIN Amlodipine Besylate (Norvasc Tab) 10 mg DAILY@0500 PO 03/21/17 05:00 04/20/17 04:59 03/21/17 05:18 10 MG Aspirin (Ecotrin Tab) 81 mg DAILY@0500 PO 03/21/17 05:00 04/20/17 04:59 03/21/17 05:17 81 MG Atorvastatin Calcium (Lipitor Tab) 40 mg DAILY@1800 PO 03/20/17 18:00 04/19/17 17:59 03/21/17 17:37 40 MG Pantoprazole Sodium (Protonix Tab) 40 mg DAILY PRN PO 03/20/17 17:00 04/19/17 16:59 03/21/17 13:19 40 MG Cetirizine HCl (zyrTEC TAB) 10 mg DAILY PO 03/21/17 09:00 04/20/17 08:59 03/21/17 08:40 10 MG Lisinopril (Zestril Tab) 10 mg DAILY PO 03/21/17 09:00 04/20/17 08:59 03/21/17 08:41 10 MG Albuterol/ Ipratropium (Duoneb) 3 ml Q4R PRN INH 03/20/17 19:00 04/19/17 18:59 Miscellaneous (Iv Fluids Completed) 1 ea PRN PRN N/A 03/20/17 19:30 03/20/18 19:29
[2017-03-21] MEDS ORDERED: ALUMINUM/MAGNESIUM SUSP 72 ML, LIDOCAINE HCL 2% VISCOUS SOLN 24 ML, BARCODE IDENTIFIER ... PO PRN ×2 (18:00)
[2017-03-21] MEDS ORDERED: ALUMINUM/MAGNESIUM SUSP 18 ML, LIDOCAINE HCL 2% VISCOUS SOLN 6 ML, BARCODE IDENTIFIER 1 EA PO SCH ×2 (18:30)
[2017-03-21] MEDS: PANTOprazole SOD 40 MG TAB PO SCH (18:51)
[2017-03-22] MEDS: DEXAMETHASONE INJ 10 MG in SYRINGE 0 ML IV SCH ×2 (04:02→05:24)
[2017-03-22 05:25] VITALS: BP 116/62; PULSE 64
[2017-03-22] MEDS: ASPIRIN 81 MG ECTAB PO SCH (05:26)
[2017-03-22] MEDS: AMLODIPINE BESYLATE 5 MG TAB PO SCH (05:26)
[2017-03-22 06:54] VITALS: BP 118/67; PULSE 68; TEMP 36.6; O2SAT 93
[2017-03-22] MEDS: MAGNESIUM HYDROXIDE SUSP 30 ML UDC PO PRN (07:50)
[2017-03-22] MEDS: CETIRIZINE HCL 10 MG TAB PO SCH (07:50)
[2017-03-22] MEDS: PANTOprazole SOD 40 MG TAB PO SCH (07:50)
[2017-03-22] MEDS: LISINOPRIL 10 MG TAB PO SCH (07:51)
[2017-03-22] MEDS: OXYCODONE/ACETAMINOPHEN 5-325 TAB PO PRN (07:52)
[2017-03-22 08:00] VITALS: O2SAT 92
--- NOTE | 2017-03-22 08:51 | DISCHARGE SUMMARY ---
DATE OF DISCHARGE: 03/22/2017 ADMITTING DIAGNOSES: Severe central spinal canal stenosis, neuropathy lower extremities. He was admitted, taken to surgery, very well done. I was pleased with the decompression. There was no degree of obstructions. He was out of bed on the 15th and did stand and took a few short walks. He is immensely compromised. He has had neurological deficits for approximately 2+ years. Vital signs are stable. He is alert, oriented. Blood pressure is stable. Hemoglobin, hematocrit 36.5. Wound clean. IMPRESSION: Severely compromised individual 76 with pretty dense neurological issue secondary to spinal stenosis. Surgery to relieve the stenosis was just performed 48 hours ago. DISPOSITION: I recommend strongly at rehabilitation unit. I think she needs to work on lower extremity strengthening, I belief 7-10 days minimal would be appropriate for Yair. Instructions, precautions. Continue with his current medications. Continue with the walker for support and continue with ____ rehab protocol. I will see him back in approximately 2 weeks.
[2017-03-22 11:03] VITALS: BP 118/67; PULSE 68; TEMP 36.6; O2SAT 92
== END 2017-03-22 13:25 ==
LOC: C.ACU 10:29 → C.3E 16:51 → ENRESERV 17:23
PROVIDERS: ADMIT Orthopaedic Surgery Orthopaedic Surgery of the Spine; ATTEND Orthopaedic Surgery Orthopaedic Surgery of the Spine
DX: M48.07 Spinal stenosis, lumbosacral region (principal); I10 Essential (primary) hypertension; J44.9 Chronic obstructive pulmonary disease, unspecified; Z86.718 Personal history of other venous thrombosis and embolism; E78.5 Hyperlipidemia, unspecified; I73.9 Peripheral vascular disease, unspecified; K21.9 Gastro-esophageal reflux disease without esophagitis; I71.4 Abdominal aortic aneurysm, without rupture; F17.210 Nicotine dependence, cigarettes, uncomplicated; Z79.899 Other long term (current) drug therapy